=== PATIENT | female | born 1955 | race American Indian/Alaskan Native ===

== ENCOUNTER 2021-11-23 15:55 | Emergency (ER) | payer MEDICARE, MEDICAID ==
[2021-11-23] MEDS ORDERED: HYDROmorphone 1 MG/ML Syringe ONE ×2 (17:30)
[2021-11-23] MEDS ORDERED: Ketorolac 30 MG/ML SDV ONE (17:30)
[2021-12-19 13:46] LABS: ESTIMATED GFR 96 mL/min (>60)
== END 2021-11-23 23:25 | disposition home or self-care (01) ==
LOC: JP.ED 15:55
DX: S81.802A Unspecified open wound, left lower leg, initial encounter (principal); S81.801A Unspecified open wound, right lower leg, initial encounter; Z20.822 Contact with and (suspected) exposure to COVID-19
CPT/HCPCS: 36415; 80053; 82947; 83605; 84145; 85027; 86140; 96372; 96374; 99283; J1170; J1885; U0002